=== PATIENT | female | born 1950 | race Native Hawaiian/Other Pacific Islander ===

== ENCOUNTER 2016-05-29 07:08 | Emergency (ER) | payer OTHER ==
[~2016-05-29] VITALS: Ht 160 cm; Wt 113.4 kg
[~2016-05-29 07:08] MED LIST: FOLIC ACI1 PO; LISI10TA11 PO; METF100038 OR; ROSU10TA PO; SIMV40TA57 PO
[2016-05-29 07:58] LABS: POTASSIUM 5.4 mmol/L (3.6-5.2)
[2016-05-29 07:59] LABS: PLATELET COUNT 252 K/uL (152-353)
[2016-05-29 09:30] VITALS: BP 132/69; TEMP 98
== END 2016-05-29 09:30 | disposition home or self-care (01) ==
LOC: ED 07:08
PROVIDERS: Emergency Medicine
DX: R10.9 Unspecified abdominal pain (principal); N28.9 Disorder of kidney and ureter, unspecified; K85.90 Acute pancreatitis without necrosis or infection, unspecified; N20.1 Calculus of ureter
CPT/HCPCS: 36415; 80053; 81000; 82150; 83690; 85027; 96360; 96361; 96374; 96375; 99284; J2270; J2405

== ENCOUNTER 2016-06-19 07:56 | Outpatient (CLI) | payer OTHER ==
[2016-06-19 08:12] LABS: PLATELET COUNT 193 K/uL (152-353)
[2016-06-19 08:23] LABS: POTASSIUM 4.4 mmol/L (3.6-5.2)
== END 2016-06-19 19:03 | disposition home or self-care (01) ==
LOC: LABW 07:56 → US 09:00 → LABW 19:03
PROVIDERS: Internal Medicine
DX: K85.90 Acute pancreatitis without necrosis or infection, unspecified (principal)
CPT/HCPCS: 36415; 80053; 82150; 82533; 83690; 85027

== ENCOUNTER 2016-06-20 08:50 | Outpatient (CLI) | payer OTHER | END 2016-06-20 19:08 | disposition home or self-care (01) | LOC: US 08:50 | DX: K85.90 Acute pancreatitis without necrosis or infection, unspecified (principal) ==

== ENCOUNTER 2017-07-30 13:57 | Outpatient (CLI) | payer OTHER | END 2017-07-30 20:33 | disposition home or self-care (01) | LOC: RAD 13:57 | DX: M25.571 Pain in right ankle and joints of right foot (principal) ==

== ENCOUNTER 2017-07-31 08:00 | Outpatient (CLI) | payer OTHER ==
[2017-07-31 08:49] LABS: PLATELET COUNT 188 K/uL (152-353)
[2017-07-31 10:16] LABS: POTASSIUM 4.7 mmol/L (3.6-5.2)
== END 2017-07-31 19:09 | disposition home or self-care (01) ==
LOC: LABW 08:00
PROVIDERS: Internal Medicine
DX: E11.9 Type 2 diabetes mellitus without complications (principal)
CPT/HCPCS: 36415; 80053; 80061; 81000; 82043; 82570; 83036; 85027; 85651

== ENCOUNTER 2018-04-30 08:50 | Outpatient (CLI) | payer OTHER ==
[2018-04-30 09:11] LABS: PLATELET COUNT 224 K/uL (152-353)
== END 2018-04-30 19:08 | disposition home or self-care (01) ==
LOC: LABW 08:50
PROVIDERS: Internal Medicine
DX: E11.9 Type 2 diabetes mellitus without complications (principal)
CPT/HCPCS: 36415; 80053; 80061; 81000; 82043; 82570; 83036; 84439; 84443; 85027

== ENCOUNTER 2018-11-24 13:48 | Outpatient (CLI) | payer OTHER | END 2018-11-24 23:40 | disposition home or self-care (01) | LOC: MAMMO 13:48 | DX: N63.10 Unspecified lump in the right breast, unspecified quadrant (principal) ==

== ENCOUNTER 2018-11-30 15:19 | Outpatient (CLI) | payer OTHER | END 2018-11-30 20:05 | disposition home or self-care (01) | LOC: LABW 15:19 | DX: N60.01 Solitary cyst of right breast (principal) | CPT/HCPCS: 87070; 87077; 87185; 87186; 87205 ==

== ENCOUNTER 2019-02-11 09:45 | Outpatient (CLI) | payer OTHER ==
[2019-02-11 10:27] LABS: PLATELET COUNT 207 K/uL (152-353)
[2019-02-11 11:09] LABS: POTASSIUM 4.9 mmol/L (3.6-5.2)
== END 2019-02-11 19:40 | disposition home or self-care (01) ==
LOC: LAB 09:45
PROVIDERS: Internal Medicine
DX: Z00.00 Encounter for general adult medical examination without abnormal findings (principal); E11.9 Type 2 diabetes mellitus without complications; E55.9 Vitamin D deficiency, unspecified
CPT/HCPCS: 80053; 80061; 81000; 82306; 83036; 84439; 84443; 85027

== ENCOUNTER 2019-02-22 08:21 | Outpatient (CLI) | payer OTHER | END 2019-02-22 20:07 | disposition home or self-care (01) | LOC: RAD 08:21 | DX: Z13.820 Encounter for screening for osteoporosis (principal); N95.8 Other specified menopausal and perimenopausal disorders ==

== ENCOUNTER 2020-03-27 09:39 | Outpatient (CLI) | payer OTHER ==
[2020-03-27 10:31] LABS: PLATELET COUNT 207 K/uL (152-353)
[2020-03-27 10:56] LABS: POTASSIUM 4.4 mmol/L (3.6-5.2)
== END 2020-03-27 20:51 | disposition home or self-care (01) ==
LOC: LABW 09:39
PROVIDERS: ATTEND Internal Medicine
DX: N20.0 Calculus of kidney (principal); E11.9 Type 2 diabetes mellitus without complications
CPT/HCPCS: 36415; 80053; 80061; 81000; 82043; 82306; 83036; 84439; 84443; 85027

== ENCOUNTER 2021-07-19 08:50 | Outpatient (CLI) | payer OTHER ==
[2021-07-19 09:14] LABS: PLATELET COUNT 206 K/uL (152-353)
== END 2021-07-19 19:26 | disposition home or self-care (01) ==
LOC: LABW 08:50
PROVIDERS: ATTEND Internal Medicine
DX: R53.83 Other fatigue (principal); R06.09 Other forms of dyspnea
CPT/HCPCS: 36415; 82550; 83880; 84439; 84443; 84484; 85027; 85379; 86038; 86664; 86665; 87497

== ENCOUNTER 2021-07-26 10:25 | Outpatient (CLI) | payer OTHER | END 2021-07-26 19:20 | disposition home or self-care (01) | LOC: LABW 10:25 | PROVIDERS: ATTEND Internal Medicine | DX: R74.8 Abnormal levels of other serum enzymes (principal) | CPT/HCPCS: 36415; 82550 ==

== ENCOUNTER 2021-08-19 08:32 | Outpatient (CLI) | payer OTHER ==
[2021-08-19 09:25] LABS: POTASSIUM 4.7 mmol/L (3.6-5.2)
== END 2021-08-19 19:47 | disposition home or self-care (01) ==
LOC: LABW 08:32
PROVIDERS: ATTEND Internal Medicine Cardiovascular Disease
DX: Z79.899 Other long term (current) drug therapy (principal)
CPT/HCPCS: 36415; 80048

== ENCOUNTER 2021-10-07 08:47 | Outpatient (CLI) | payer OTHER | END 2021-10-07 19:30 | disposition home or self-care (01) | LOC: LABW 08:47 | PROVIDERS: ATTEND Physician Assistant | DX: I31.3 Pericardial effusion (noninflammatory) (principal) | CPT/HCPCS: 36415; 84443; 85652 ==

== ENCOUNTER 2022-02-28 09:09 | Outpatient (CLI) | payer OTHER ==
[2022-02-28 10:20] LABS: PLATELET COUNT 229 K/uL (152-353)
[2022-02-28 10:42] LABS: POTASSIUM 5.2 mmol/L (3.6-5.2)
== END 2022-02-28 19:51 | disposition home or self-care (01) ==
LOC: LABW 09:09
PROVIDERS: ATTEND Internal Medicine
DX: E11.9 Type 2 diabetes mellitus without complications (principal)
CPT/HCPCS: 36415; 80053; 80061; 81002; 82043; 83036; 84439; 84443; 85027

== ENCOUNTER 2022-03-13 09:52 | Outpatient (CLI) | payer OTHER | END 2022-03-13 18:57 | disposition home or self-care (01) | LOC: MAMMO 09:52 | PROVIDERS: ATTEND Internal Medicine | DX: N64.4 Mastodynia (principal) ==